=== PATIENT | male | born 1995 | race Two or more races ===

== ENCOUNTER 2020-10-14 06:28 | Emergency (ER) | payer OTHER ==
[~2020-10-14] VITALS: Ht 180.3 cm; Wt 79.8 kg
--- NOTE | 2020-10-14 06:28 | NUR ---
Pt BIB [facility] s/p seizure at home, witnessed by family, seizure lasted 5 minutes denies head trauma, paramedics stated that pt has seziures on daily basis. Pt A/O x3, no SOB or labored breathing, denies CP/pressure. Clear speech, complete sentences.
--- NOTE | 2020-10-14 06:29 | NUR ---
Dr. Conway at bedside, MSE in progress.
--- NOTE | 2020-10-14 06:55 | NUR ---
Lab at bedside.
--- NOTE | 2020-10-14 07:06 | NUR ---
Gave report to QIAN Negrete.
[2020-10-14 07:09] LABS: CREATININE 1.2 mg/dL (0.6-1.3); POTASSIUM 3.6 mmol/L (3.5-5.1)
--- NOTE | 2020-10-14 07:22 | NUR ---
PATIENT IS AWAKE AND ALERT, VITAL SIGNS STABLE.
[2020-10-14] MEDS ORDERED: LORAZEPAM 0.5 MG TABLET PO ONE (07:30)
[2020-10-14] MEDS ORDERED: LORAZEPAM 1 MG TABLET ONE (07:41)
--- NOTE | 2020-10-14 07:44 | NUR ---
PATIENT HAD A SMALL SIEZURE LASTING LESS THAN 30 SECONDS. HE WAS IN THE BED WITH PADDED SIDERAILS UP. DR DACOSTA NOTIFIED AND HE CAME IN THE ROOM TO ASSESS. I GAVE PT ATIVAN ORDERED. HE IS AWAKE AND ALERT NOW, NO SEIZURE ACTIVITY AT THIS TIME. PT STATES HE DOES NOT DRIVE.
--- NOTE | 2020-10-14 07:47 | NUR ---
PATIENT AMBULATED TO BATHROOM WITH STEADY GAIT. HE DRANK WATER WITH NO ISSUE.
--- NOTE | 2020-10-14 07:52 | NUR ---
PATIENT DRANK 4 OZ OF JUICE. HE IS ON THE PHONME WITH HIS . HE IS A/A/O X3 IN NO DISTRESS. HE AMBULATED TO BATHROOM ONE MORE TIME WITH STEADY GAIT.
--- NOTE | 2020-10-14 08:01 | NUR ---
DC AND FOLLOW UP INSTRUCTIONS GIVEN AND EXPLAINED TO PATIENT WHO STATES HE UNDERSTANDS ALL INSTRUCTIONS. I TOOK HIM TO THE CAR WITH A WHEELCHAIR.
[2020-10-14 08:32] VITALS: BP 131/73
== END 2020-10-14 08:10 | disposition home or self-care (01) ==
LOC: ER 06:30
DX: G40.909 Epilepsy, unspecified, not intractable, without status epilepticus (principal); Z86.03 Personal history of neoplasm of uncertain behavior; Z79.899 Other long term (current) drug therapy
CPT/HCPCS: 36415; 93005; A4663